=== PATIENT | male | born 1990 | race Caucasian/White ===

== ENCOUNTER 2016-04-17 17:02 | Emergency (ER) | payer OTHER ==
[~2016-04-17 17:02] MED LIST: CEPH-460 PO; IBUP800T23 PO
[2016-04-17 17:04] VITALS: BP 145/78; PULSE 50; RESP 16; TEMP 98; O2SAT 97
--- NOTE | 2016-04-17 19:13 | PD ---
HPI Chief Complaint: Wound/Suture/Staple Re-Check Time Seen by Provider: 19:10 Travel History International Travel<30 days: No Contact w/Intl Traveler<30days: No Traveled to known affect area: No History of Present Illness HPI 25-year-old white male presents to emergency department for evaluation of a left forearm laceration which was repaired in 04 April. He is here to have his sutures removed. He denies any complaints. No fever chills. No redness or discharge. PFSH Past Medical History Immunizations Current: Yes Tetanus Vaccination: < 5 Years Past Surgical History Cholecystectomy: Yes Social History Alcohol Use: Yes Tobacco Use: No Substance Use: No Allergies-Medications (Allergen,Severity, Reaction): Coded Allergies: No Known Allergies (Unverified , 04/17/16) Reported Meds & Prescriptions Reported Meds & Active Scripts Active Ibuprofen 800 Mg Tab 800 Mg PO TID PRN Keflex (Cephalexin) 500 Mg Cap 500 Mg PO Q8H 10 Days Review of Systems Except as stated in HPI: all other systems reviewed are Neg Physical Exam Narrative GENERAL: This is a well-nourished, well-developed patient, in no apparent distress. SKIN: No rashes, ecchymoses or lesions. Warm and dry. Patient is a well-healed laceration to left volar forearm. No signs of infection. HEAD: Atraumatic. Normocephalic. EYES: PERRL, EOMI, no discharge or injection. No scleral icterus. EARS: Clear NOSE: Nasal turbinates appear normal. THROAT: Mucosa pink and moist. Airway patent. NECK: Trachea midline. supple, moves head freely. LUNGS: Clear to auscultation. CV: Regular in rhythm. ABDOMEN: Soft nontender. EXT: No clubbing cyanosis or edema. Data Data Last Documented VS Vital Signs Date Time Temp Pulse Resp B/P Pulse Ox O2 Delivery O2 Flow Rate FiO2 04/17/16 17:04 98.0 50 16 145/78 97 Room Air MDM Medical Decision Making Medical Screen Exam Complete: Yes Emergency Medical Condition: Yes Medical Record Reviewed: Yes Differential Diagnosis Differential diagnosis: Suture removal, wound infection, dehiscence Narrative Course Patient sutures are removed by me and Steri-Strips applied. Diagnosis Primary Impression: Visit for suture removal Additional Impression: healing laceration Patient Instructions: General Instructions Additional Instructions: Rest. Keep clean and dry. Follow-up with a medical doctor as needed. Return to the ER if any problems. Med/Other Pt SpecificInfo: Wound Care Disposition: 01 DISCHARGE HOME Condition: Stable Eddie Bailey Apr 17, 2016 19:12
== END 2016-04-17 19:44 | disposition home or self-care (01) ==
LOC: NEPB 17:02
DX: Z48.02 Encounter for removal of sutures (principal); S51.812A Laceration without foreign body of left forearm, initial encounter; S51.812D Laceration without foreign body of left forearm, subsequent encounter
CPT/HCPCS: 99281

== ENCOUNTER 2016-09-26 20:11 | Emergency (ER) | payer OTHER ==
[~2016-09-26] VITALS: Ht 180.3 cm; Wt 75.0 kg
[2016-09-26 20:16] VITALS: BP 148/99; PULSE 48; RESP 16; TEMP 98.8; O2SAT 100
--- NOTE | 2016-09-26 21:16 | PD ---
HPI Chief Complaint: Laceration/Skin Injury Time Seen by Provider: 21:14 Travel History International Travel<30 days: No Contact w/Intl Traveler<30days: No Traveled to known affect area: No History of Present Illness HPI 26-year-old [id number] white male presents to emergency department with a laceration to his left index finger. He states that he had cut it accidentally with an [employer] knife. He presents for evaluation. He is up-to- date with immunizations. Pain is minimal. No numbness, tingling or weakness. History Past Medical Histgory Medical History: Denies Significant Hx Tetanus Vaccination: < 5 Years Social History Alcohol Use: Yes Tobacco Use: No Allergies-Medications (Allergen,Severity, Reaction): Coded Allergies: No Known Allergies (Unverified , 09/26/16) Reported Meds & Prescriptions Reported Meds & Active Scripts Active No Active Prescriptions or Reported Medications Review of Systems Except as stated in HPI: all other systems reviewed are Neg Physical Exam Narrative GENERAL: This is a well-nourished, well-developed patient, in no apparent distress. SKIN: No rashes, ecchymoses or lesions. Warm and dry. Patient has a 1 cm laceration to the volar pad of the left index finger distal phalanx. There is no active bleeding. The wound is neurovascular intact. No deep structure injury. HEAD: Atraumatic. Normocephalic. EYES: PERRL, EOMI, no discharge or injection. No scleral icterus. EARS: Clear NOSE: Nasal turbinates appear normal. THROAT: Mucosa pink and moist. Airway patent. NECK: Trachea midline. supple, moves head freely. LUNGS: Clear to auscultation. CV: Regular in rhythm. ABDOMEN: Soft nontender. EXT: No clubbing cyanosis or edema. Data Data Last Documented VS Vital Signs Date Time Temp Pulse Resp B/P Pulse Ox O2 Delivery O2 Flow Rate FiO2 09/26/16 20:16 98.8 48 16 148/99 100 Room Air MDM Medical Screen Exam Complete: Yes Emergency Medical Condition: No Differential Diagnosis MDM: High Differential diagnoses: Fracture, sprain, strain, dislocation, contusion, neurovascular injury Narrative Course A medical screening exam was performed: At the time of evaluation the presenting medical condition was determined not to be of an emergent nature. The patient was given the option of receiving additional care, but declined. Patient was given options for additional community resources from which to obtain care. The Patient Has Been advised to seek medical attention for their presenting complaint. The patient has been advised to return to the ER at any time if an emergent condition develops. Primary Impression: Encounter for medical screening examination Scripts No Active Prescriptions or Reported Meds Condition: Eddie Corral Sep 26, 2016 21:16
== END 2016-09-26 21:15 | disposition left against medical advice (07) ==
LOC: NEPK 20:11
DX: S61.211A Laceration without foreign body of left index finger without damage to nail, initial encounter (principal); W26.0XXA Contact with knife, initial encounter; Y93.9 Activity, unspecified; Y92.9 Unspecified place or not applicable
CPT/HCPCS: 99281